=== PATIENT | female | born 1975 | race Caucasian/White ===

== ENCOUNTER 2025-02-05 16:42 | Emergency (ER) | payer BC, SELFPAY ==
--- OUTSIDE RECORDS SUMMARY | 2025-02-05 16:54 | XMS_ITS | Encounter Summary ---
Author Organization Group [facility] tem Address [id number] [address] [place] [address] Care Team Providers Care Pad Assembler Name Role Phone Jorge A Campos Primary Care Provider [phone] Encounter Details DateTypeDepartmentCare Team (Latest Contact Info)Mkjmrpbtkfd53/15/2025Travel Social History Tobacco UseTypesPacks/DayYears UsedDateSmoking Tobacco: NeverSmokeless Tobacco: NeverAlcohol UseStandard Drinks/WeekCommentsYes0 (1 standard drink = 0.6 oz pure alcohol)random glass of winePHQ-2AnswerDate RecordedTotal Qmzgx386 ChildcareAnswerDate KrdqapluAgmwegqrgCooafim11/12/2019EmploymentAnswerDate EmkwrdupIqrydfkqeiBvndxfh21/12/2019Hunger ScreeningAnswerDate RecordedWithin the past 12 months we worried whether our food would run out before we got money to buy more.Never True09/21/2024Within the past 12 months the food we bought just didn't last and we didn't have money to get more.Never True09/21/2024Purpose - LifeAnswerDate RecordedPurpose and direction in cbmlYsltgou15/11/2021 CommentsNoSex and Gender InformationValueDate RecordedSex Assigned at BirthNot on fileLegal PzyVpfrem27/06/2015 12:03 PM EDTGender IdentityNot on fileSexual OrientationNot on filedocumented as of this encounter Plan of Treatment DateTypeDepartmentCare Team (Latest Contact Info)Fasopvnucno51/07/2025 3:20 PM ESTAppointment [facility] [address] [place] [address] Junie Chaidez MD [address] [facility], [address] [place] [address] 02/27/2025 11:45 AM ESTOffice Visit [facility] [address] [facility] [place] [address] [place] [phone] Junie Chaidez MD [address] [facility], [address] [address] documented as of this encounter Visit Diagnoses Not on filedocumented in this encounter Additional Health Concerns AssessmentNoted TimePHQ-9 Depression Total Score: 2:00 PM EDT documented as of this encounter Care Teams Team MemberRelationshipSpecialtyStart DateEnd Date Jorge A Campos DO [address] [facility], [facility] [place] [address] PCP - GeneralFamily Medicine11/03/16documented as of this encounter
--- OUTSIDE RECORDS SUMMARY | 2025-02-05 16:54 | XMS_ITS | Encounter Summary ---
Author Organization [facility] tem Address [id number] [address] [place] [address] Care Team Providers Care Crown Blocker Name Role Phone Jorge A Campos DO Primary Care Provider [phone] Encounter Details DateTypeDepartmentCare Team (Latest Contact Info)Oozdlyvblfo92/20/2025Results Follow-Up [facility] - Family Medicine [address] [place] [address] Jorge A Campos DO [address], [place] [address] Mammography screening bilateral with CAD Social History Tobacco UseTypesPacks/DayYears UsedDateSmoking Tobacco: NeverSmokeless Tobacco: NeverAlcohol UseStandard Drinks/WeekCommentsYes0 (1 standard drink = 0.6 oz pure alcohol)random glass of winePHQ-2AnswerDate RecordedTotal Gcqyp743 ChildcareAnswerDate BgdksemgYgueaulngAtjvkgd30/12/2019EmploymentAnswerDate CvpfekeuFwofkyfgorQkohgqt47/12/2019Hunger ScreeningAnswerDate RecordedWithin the past 12 months we worried whether our food would run out before we got money to buy more.Never True09/21/2024Within the past 12 months the food we bought just didn't last and we didn't have money to get more.Never True09/21/2024Purpose - LifeAnswerDate RecordedPurpose and direction in dvlmYwqavgh56/11/2021 CommentsNoSex and Gender InformationValueDate RecordedSex Assigned at BirthNot on fileLegal EsxHlovmf29/06/2015 12:03 PM EDTGender IdentityNot on fileSexual OrientationNot on filedocumented as of this encounter Plan of Treatment DateTypeDepartmentCare Team (Latest Contact Info)Tzruleddlwh70/07/2025 3:20 PM ESTAppointment [facility] [address] [place] [address] Junie Chaidez MD [address] [phone] 02/27/2025 11:45 AM ESTOffice Visit [facility] Pul[facility]Sleep Medicine [address] [phone] Junie Chaidez MD [address] [address] documented as of this encounter Visit Diagnoses Not on filedocumented in this encounter Additional Health Concerns AssessmentNoted TimePHQ-9 Depression Total Score: 2:00 PM EDT documented as of this encounter Care Teams Team MemberRelationshipSpecialtyStart DateEnd Date Jorge A Campos DO [address], [facility] [[email or web address] [place] [address] PCP - GeneralFamily Medicine11/03/16documented as of this encounter
--- OUTSIDE RECORDS SUMMARY | 2025-02-05 16:54 | XMS_ITS | Clinical Summary ---
Author Organization [facility] Address [address] [place] [address] Care Team Providers Care Sericulture Teacher Name Role Phone Unavailable Primary Care Provider Unavailabl e Allergies Active AllergyReactionsCriticalityNoted DateCommentsCodeineItching,Nausea And Vomiting,Nausea YggaRyoi64/24/2017 Also causes pt. To vomit ZyqsqnuumhmOvsba49/24/2017 Patient stated mom always said don't take pennicillin IrszfparxjvzSfkmrhx75/24/2025 Medications MedicationSigDispense QuantityRefillsLast FilledStart DateEnd DateStatus albuterol 90 mcg/actuation inhaler Inhale 2 puffs every 6 (six) hours if needed for wheezing.Active albuterol 2.5 mg /3 mL (0.083 %) nebulizer solution Inhale 2.5 mg if needed in the morning, at noon, in the evening, and at bedtime. 06/10/2018Active Allergy Relief-D, cetirizine, 5-120 mg 12 hr tablet Take 1 tablet by mouth two times daily.Active codeine-guaiFENesin (Robitussin-AC) 10-100 mg/5 mL syrup Take 5 mL by mouth every 4 (four) hours if needed for cough.5Active esomeprazole (NexIUM) [address] capsule Take 40 mg by mouth in the morning.07/05/2018Active Trelegy Ellipta 200-62.5-25 mcg blister with device Inhale 1 puff in the morning.5Active montelukast (Singulair) 10 mg tablet Take 10 mg by mouth in the morning.10/05/2016Active predniSONE (Deltasone) 10 mg tablet Take 10 mg by mouth in the morning.Active Encounters DateTypeDepartmentCare TfanWitqbbyioks43/24/2025 10:00 AM EDTOffice Visit [facility] [address] [place] [address] Jesus Alberto Zapata MD 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)from Last 3 Months Social History Tobacco UseTypesPacks/DayYears UsedDateSmoking Tobacco: NeverSmokeless Tobacco: Never Tobacco Cessation:Counseling Given: Not Answered Alcohol UseStandard Drinks/WeekCommentsYes0 (1 standard drink = 0.6 oz pure alcohol)occCommentsUnknownSex and Gender InformationValueDate Recorded Sex Assigned at YehhyVzesok25/24/2025 9:53 AM EDTLegal YveDqqhod95/27/2025 1:26 PM EDTGender ZytwdapsHtfvxf95/24/2025 9:53 AM EDTSexual OrientationHeterosexual or Wuohplmb31/24/2025 9:53 AM EDT Last Filed Vital Signs Vital SignReadingTime TakenCommentsBlood Vtnrmotq506/80001/03/2025 10:04 AM EDT Vrcys529201/03/2025 10:04 AM MMXFrfpyvoafiz84.9 ??C (98.5 ??F)01/03/2025 10:04 AM EDTRespiratory Rate--Oxygen Npfbktevkc13%01/03/2025 10:04 AM EDTInhaled Oxygen Concentration--Bpfqvy35.9 kg (152 lb)01/03/2025 10:04 AM OBHNemdoh244.1 cm (5' 5 )01/03/2025 10:04 AM EDTBody Mass Index25.29001/03/2025 10:04 AM EDT Plan of Treatment Health MaintenanceDue DateLast DoneCommentsCT Inoetmrpatum1977Colonoscopy 1977Colorectal Cancer Dbdoaeoon1977FIT-DNA1977FIT1977 FOBT1977 7473Pccnjtpsnnfdt1977Depression Ejfdphzlu49/20/1989Hepatitis B Vaccines (1 of 3 - 19+ 3-dose series)01/30/1996Pneumococcal Vaccine: Pediatrics (0 to 5 Years) and At-Risk Patients (6 to 64 Years) (1 of 2 - PCV)01/30/1996Pap Smear1998Cervical Cancer Sxbuvvyap24/20/2007HPV/Tliqrz2301/29/2007Influenza Vaccine (#1)/05/2017, 02/10/20152784Sazorbxpz76Zoster Vaccines (1 of 2)2027dult Wxlctpm34/03/2025, 09/11/2011HIB VaccinesAged OutNo longer eligible based on patient's age to complete this topic HPV VaccinesAged OutNo longer eligible based on patient's age to complete this topicIPV VaccinesAged OutNo longer eligible based on patient's age to complete this topicMeningococcal B VaccineAged OutNo longer eligible based on patient's age to complete this topicMeningococcal VaccineAged OutNo longer eligible based on patient's age to complete this topicRotavirus VaccinesAged OutNo longer eligible based on patient's age to complete this topic Insurance
--- OUTSIDE RECORDS SUMMARY | 2025-02-05 16:54 | XMS_ITS | Clinical Summary ---
Author Organization [employer] tem Address [id number] [address] [place] [address] Care Team Providers Care Vp Software Name Role Phone MaudeJorge A patterson Primary Care Provider Allergies Active AllergyReactionsCriticalityNoted FbwrFghmifojNaqzuwjAyeydh04/24/2017 PenicillinsOther (See Comments)11/02/2016 Patient stated mom always said don't take pennicillin TheophyllineItching Medications MedicationSigDispense QuantityRefillsLast FilledStart DateEnd DateStatus SUMAtriptan (IMITREX) 50 mg tablet Take 1 tablet (50 mg total) by mouth as needed for migraine. 9 tablet 2Active MUCUS RELIEF ER 600 mg tablet extended release 12hr TAKE 1 TABLET BY MOUTH EVERY 12 HOURS. 40 tablet 5Active albuterol (PROVENTIL,VENTOLIN) 2.5 mg /3 mL (0.083 %) nebulizer solution Indications:Hypereosinophilic syndrome, unspecified type,Organizing pneumonia (CMS-HCC)Inhale 3 mL (2.5 mg total) by nebulization 4 (four) times a day as needed for wheezing. 150 mL 5Active Additional Information Patient not taking.Reported on 01/19/2025 albuterol (PROVENTIL HFA;VENTOLIN HFA) 90 mcg/actuation inhaler Indications:Hypereosinophilic syndrome, unspecified type,Organizing pneumonia (CMS-HCC)Inhale 2 puffs every 6 (six) hours as needed for wheezing. 18 g 1105Active omeprazole (PriLOSEC) 40 mg capsule Take 1 capsule (40 mg total) by mouth in the morning. 90 capsule 5Active nemnzlrqybr-tzkxkzqhy-ktaffsue (TRELEGY ELLIPTA) 200-62.5-25 mcg blister with device Inhale 1 puff in the morning. 90 each 5Active montelukast (SINGULAIR) 10 mg tablet Take 1 tablet (10 mg total) by mouth nightly. 30 tablet 1105Active predniSONE (DELTASONE) 10 mg tablet TAKE 4 TABS FOR 14 DAYS, 3.5 TABS FOR 7 DAYS, 3 TABS FOR 7 DAYS, 2.5 TABS FOR 7 DAYS, 2 TABS FOR 7 DAYS, 1.5 TABS FOR 7 DAYS, 1 TAB FOR 7 DAYS, THEN 0.5 TABS FOR 7 DAYS, TAKE WITH BREAKFAST 102 tablet 5Active predniSONE (DELTASONE) 10 mg tablet Take 4 tablets (40 mg total) by mouth daily with breakfast for 14 days, THEN 3.5 tablets (35 mg total) daily with breakfast for 7 days, THEN 3 tablets (30 mg total) daily with breakfast for 7 days, THEN 2.5 tablets (25 mg total) daily with breakfast for 7 days, THEN 2 tablets (20 mg total) daily with breakfast for 7 days, THEN 1.5 tablets (15 mg total) daily with breakfast for 7 days, THEN 1 tablet (10 mg total) daily with breakfast for 7 days, THEN 0.5 tablets (5 mg total) daily with breakfastfor 7 days. 154 tablet 5001/08/2025Discontinued Active Problems ProblemNoted DateDiagnosed DateAbnormal finding on lung ujxzdzu3805/13/2023 Wokioxvbpqkongrnrs01/30/202305/30/2023Migraine without aura12/05/2018 Gastroesophageal reflux disease without pwzayewvcje55/26/6765Ycmvmk18/20/2018 Zchjljcxmohodn98/20/2017Pituitary adenoma (CMS-HCC) (Not present on last MRI) 10/27/2016Pulmonary embolismWPW syndrome Resolved Problems ProblemNoted DateDiagnosed DateResolved DateChronic bokgexyyoudy81/02/2019 4Displaced fracture of distal phalanx of lesser toe Encounters DateTypeDepartmentCare CpxwPybealpnqkb45/15/9739Xsfyuo69/10/2025 10:30 AM EDT Office Visit [facility] [address] [facility] [address] [place] [phone] Junie Chaidez MD Boumegouas, Manel, MD Abnormal echocardiogram; WPW (Ehhdg-Pwmxrehoa-Qzijx syndrome)01/19/20257339Wmtbcu16/27/2025Refill [facility] [address] [place] [phone] Junie Chaidez MD 12/25/2024 11:30 AM EDTOffice Visit [facility] [address] [place] [phone] Junie Chaidez MD Abnormal echocardiogram (Primary Dx); WPW (Vitzc-Egzcvjmyc-Ibsoy syndrome); Hypereosinophilic syndrome, unspecified type; Chronic eosinophilic pneumonia ([facility])12/25/20242720Ixkcva02/14/2025Travel 12/12/2024 8:00 AM EDT - 12/12/2024 11:59 PM EDTHospital Encounter [facility] - Pulmonary Function [address] [place] [phone] Celi Mercedes MD Asthma, unspecified asthma severity, unspecified whether complicated, unspecified whether persistent; SOB (shortness of breath) Discharge Disposition: Home12/12/20246527Kjaioq61/31/2025Refill [facility] [address] [place] [phone] Junie Chaidez MD 12/10/2024Refill [facility] - Family Medicine [address] [place] [phone] Jorge A Campos DO 12/05/2024Documentation [facility] [address] [place] [phone] Faiza Bagley, RN 12/05/2024Orders Only [facility] [address] [phone] Junie Chaidez MD Mediastinal adenopathy (Primary Dx)12/04/2024 1:56 PM EDT - 12/04/2024 11:59 PM EDTHospital Encounter [facility] - Cardiovascular [address] [place] [phone] Junie Chaidez MD Moderate persistent asthma with exacerbation; Hypereosinophilic syndrome, unspecified type; Organizing pneumonia ([facility]) Discharge Disposition: Home12/04/2024 12:52 PM EDT - 12/04/2024 1:55 PM EDT Hospital Encounter [facility] - Radiology [address] [place] [phone] Chronic eosinophilic pneumonia ([facility]) Discharge Disposition: Home12/04/20245455Rlubxs91/20/2025Results Follow-Up [facility] - Family Medicine [address] [place] [phone] Jorge A Campos, DO Mammography screening bilateral with CAD11/24/2024 7:57 AM EDT - 11/24/2024 11:59 PM EDTHospital Encounter [facility] - Mammography/DEXA Imaging [address] [place] [phone] Encounter for screening mammogram for malignant neoplasm of breast Discharge Disposition: Home11/23/20248712Tlgwqy52/06/2025Telephone [facility] [address] [place] [phone] Junie Chaidez MD 11/13/2024Telephone [facility] [address] [place] [phone] Junie Chaidez MD 11/12/2024Refill [facility] - Family Medicine [address] [place] [phone] Jorge A Campos, Severe persistent asthma, unspecified whether complicated ([facility])11/07/2024 9:55 AM EDTAnesthesia Event [facility] [address] [place] [address] Guru Bills MD 11/07/2024 9:00 AM EDT - 11/07/2024 10:30 AM EDTSurgery [facility] [address] [place] [phone] Junie Chaidez MD BRONCHOSCOPY ALVEOLAR LAVAGE [[id number] (CPT??)]11/07/2024 7:08 AM EDT - 11/07/2024 12:49 PM EDTHospital Encounter [facility] [address] [facility] [place] [phone] Junie Chaidez MD Abnormal finding on lung imaging (Primary Dx) Discharge Disposition: Home11/07/2024Travelfrom Last 3 Months Immunizations ImmunizationAdministration DatesNext DueInfluenza Split Preservative Free ID 01/11/2018Influenza, Jczyepffrxl92/02/2018,02/10/2015Tdap09/21/2024,09/11/2011 Family History Medical HistoryRelationNameCommentsProstate cancerFatherLarrySkin cancerFather LarryMiscarriages / StillbirthsMotherCathy BalesAlcohol abusePaternal GrandfatherEarl Balesearly deathBreast cancerPaternal GrandmotherJuanita Karbler 60sDiabetesPaternal GrandmotherJuanita KarblerNo Known ProblemsSister 1Learning disabilitiesSister 2Leslie MillisBil Breast CancerNeg HxRelationNameStatus CommentsFatherLarryAliveMotherCathy BalesAlivePaternal GrandfatherEarl Marysol AlivePaternal GrandmotherJuanita KarblerAliveSister 1AliveSister 2Leslie Millis Alive Social History Tobacco UseTypesPacks/DayYears UsedDateSmoking Tobacco: NeverSmokeless Tobacco: NeverAlcohol UseStandard Drinks/WeekCommentsYes0 (1 standard drink = 0.6 oz pure alcohol)random glass of winePHQ-2AnswerDate RecordedTotal Ndjou051 ChildcareAnswerDate SvcqwuhxGcqkeagxqZarzber02/12/2019EmploymentAnswerDate HklimubfLvcprqlgvkTxsvolw99/12/2019Hunger ScreeningAnswerDate RecordedWithin the past 12 months we worried whether our food would run out before we got money to buy more.Never True09/21/2024Within the past 12 months the food we bought just didn't last and we didn't have money to get more.Never True09/21/2024Purpose - LifeAnswerDate RecordedPurpose and direction in beioHsucbgg58/11/2021 CommentsNoSex and Gender InformationValueDate RecordedSex Assigned at BirthNot on fileLegal FiwUhgjcb79/06/2015 12:03 PM EDTGender IdentityNot on fileSexual OrientationNot on file Last Filed Vital Signs Vital SignReadingTime TakenCommentsBlood Yztqrfhb874/9001/19/2025 10:15 AM EDT Hlvqn900201/19/2025 10:15 AM RWLJxloxbauyvc61.5 ??C (97.7 ??F)12/25/2024 11:23 AM EDTRespiratory Huxu026911/07/2024 12:30 PM EDTOxygen Ctyxwqszch799%01/19/2025 10:15 AM EDTInhaled Oxygen Concentration--Nmoetd08.5 kg (157 lb 9.6 oz) 01/19/2025 10:15 AM FCOYvofeh582.1 cm (5' 5 )01/19/2025 10:15 AM EDTBody Mass Index26.231 10:15 AM EDT Plan of Treatment DateTypeDepartmentCare Team (Latest Contact Info)Dlnzdqxkvel64/07/2025 3:20 PM ESTAppointment [facility] [address] [place] [address] Junie Chaidez MD [address] [facility], [address] [place] [phone] (Wpmm) 02/27/2025 11:45 AM ESTOffice Visit [facility] [address] [phone] Junie Chaidez MD [address] [facility], [facility] [address] [place] [address] Health MaintenanceDue DateLast DoneCommentsAdult BMI Follow Up Plan1995Pap Smear/, 12/05/2018, 12/05/2018Influenza Bipcanh9712/11/2024 01/11/2018, 01/11/2018, 02/10/2015Depression Pbsvtxyen12 Otqavtsvn39, 11/24/2024, 08/09/2023, Additional history exists Adult BMI Xrgypzdvi21Tobacco Hegpyfmwp56 DTaP,Tdap and Td Vaccines (3 - Td or Tdap), 09/11/2011 Medical Devices Not on file Procedures Procedure NamePriorityDate/TimeAssociated DiagnosisCommentsPOCT EKGRoutine 01/19/2025 10:25 AM EDT Abnormal echocardiogram WPW (Ffsun-Fincyfgzh-Dimko syndrome) SPIROMETRY PRE/POST BRONCHODILATOR AND DLCO AND YEFDIMOTQRJRMPPEwvhuli47/02/2025 9:02 AM EDT Asthma, unspecified asthma severity, unspecified whether complicated, unspecified whether persistent ECHO COMPLETE WO ZBMXVJBAYztyokq74/25/2025 2:36 PM EDT Moderate persistent asthma with exacerbation Hypereosinophilic syndrome, unspecified type Organizing pneumonia (CMS-HCC) XR CHEST 2 PIWNopbkas09/25/2025 12:59 PM EDT Chronic eosinophilic pneumonia (CMS-HCC) MAMM SCREENING BILATERAL W KSQEnrtzjs66/15/2025 8:19 AM EDT Encounter for screening mammogram for malignant neoplasm of breast AFB CULTURE DIRECT INCLUDES AFB SRODWRgbqfbs08/29/2025 11:54 AM EDT FUNGAL CULTURE INCLUDES FUNGAL CMCMWPwvcocw86/29/2025 11:54 AM EDT ANAEROBIC GASMCDYRxufxhm06/29/2025 11:54 AM EDT TISSUE UFGVBRJQesvxcx44/29/2025 11:54 AM EDT FLOW CYTOMETRY, DYJQJZCtzhzvf87/29/2025 10:59 AM EDT REFLEXED BODY FLUID CELL COUNT NNRQCTMQOYSDIescwbb55/29/2025 10:13 AM EDT BODY FLUID CELL CBLLXSjsdyaz76/29/2025 10:13 AM EDT AFB CULTURE CONCENTRATED INCLUDES AFB TVPQAJiiinyc93/29/2025 10:13 AM EDT LOWER RESP CULTURE SPUTUM CULTURE INC GRAM LGCGFMdukcsr54/29/2025 10:13 AM EDT FUNGAL CULTURE INCLUDES FUNGAL RGFPRIdrlkho81/29/2025 10:13 AM EDT NON-GYNECOLOGIC VUZEUGVQOmyyrmh27/29/2025 10:11 AM EDT REFLEXED BODY FLUID CELL COUNT DGXBQLNJVJSBYtvmtfh68/29/2025 10:11 AM EDT BODY FLUID CELL QVZVTXcknmbs02/29/2025 10:11 AM EDT AFB CULTURE CONCENTRATED INCLUDES AFB XWWMEHhfbowb53/29/2025 10:11 AM EDT LOWER RESP CULTURE SPUTUM CULTURE INC GRAM EAXQDVrbzxbu2025 10:11 AM EDT FUNGAL CULTURE INCLUDES FUNGAL JHMCYOfdlieu41/29/2025 10:11 AM EDT ME AN ELECTIVE ENDOTRACHEAL RBOBBUJmofcyx22/29/2025 10:04 AM EDT ENDOBRONCHIAL ULTRASOUND ZPPUWOSXIPVH70/29/2025 9:56 AM EDT EGPA, hypereosinophilic syndromes, eosinophilic pneumonia, pulm nodule. ME BRNCHSC W/BRNCL ALVEOLAR GOKOJS6811/07/2024 9:56 AM EDT EGPA, hypereosinophilic syndromes, eosinophilic pneumonia, pulm nodule. LWGLRPMICBRO84/29/2025 9:48 AM EDT POCT , URINE (NUCG)Zmytyxo2411/07/2024 8:33 AM EDT PROVATION ASHGUJPBWQUTLjqfyhx79/29/2025 8:16 AM EDT HIGH RISK HPV W/NVBBNubapof18/26/2019 6:53 PM EDT from Last 3 Months or Most Recently Relevant to Health Maintenance Results * POCT EKG (01/19/2025 10:25 AM EDT) Narrative Authorizing ProviderResult TypeResult StatusMando Zhu MDECG ORDERABLES Final ResultPerforming OrganizationAddressCity/State/ZIP CodePhone Number MANUALLY TRANSCRIBED RESULTS * SPIROMETRY PRE/POST BRONCHODILATOR AND DLCO AND PLETHYSMOGRAPHY (12/12/2024 9:02 AM EDT) Narrative MANUALLY TRANSCRIBED RESULTS - 12/24/2024 10:40 AM EDT Date of Testin12/12/2024 Quality of Data: The patient's efforts are acceptable and reproducible. Test Performed: Pulmonary Function Test Spirometry Findings: Spirometry shows normal FEV1 at 91% of predicted with no significant change after bronchodilators. ??Normal forced vital capacity at 92% of predicted with no significant change after bronchodilators. ??Normal FEV1/FVC ratio at 0.79 with no significant change after bronchodilators. ?? Flow volume loops are normal. ??The response to bronchodilators is negative. Lung Volumes: Residual volume is normal at 108% of predicted. ??Total lung capacity is normal at 104% of predicted. Diffusion Capacity: Uncorrected DLCO is normal at 87% of predicted. Conclusions: Normal pulmonary function test. ??Negative response to bronchodilators. ?? Clinical correlation advised Celi Mercedes MD Authorizing ProviderResult TypeResult StatusMohammaayanna Mercedes [facility]ITALFT ORDERABLESFinal ResultPerforming OrganizationAddressCity/State/ZIP CodePhone Number MANUALLY TRANSCRIBED RESULTS * Echo complete W/O contrast (12/04/2024 2:36 PM EDT)ComponentValueRef RangeTest MethodAnalysis TimePerformed AtPathologist SignatureLVOT stroke vghugq36.28ml XCELERALV Systolic Nceblr30.71gZAKYLUTPRE36%EQXLLMRHT6517 - 44 %XCELERALV Diastolic Toeqjg34.45oDGCFRLHIVKXDc7.68tlCFRDABZLPPCl0.28yeDIYVKNRTSQ4.640.6 - 1.1 cmXCELERAPW0.680.6 - 1.1 cmXCELERALVOT diameter2.82gjSHDGIQVSIR24.40cm/s XCELERAMV TDI E' (medial)9.53cm/sXCELERALA Volume Index24.3mL/x0WBIPBEBN/A ratio1.59XCELERAE wave deceleration bmug419.00msecXCELERAMV Peak E Vel93.10 cm/sXCELERAMV Peak A Vel58.70cm/sXCELERALA size3.40cmXCELERAAortic root3.30cm XCELERALA eylews62.68vl4BDBASZPCM diastolic dimension (basal)39.3mmXCELERA TAPSE2.75cmXCELERAAV peak ziw122.00cm/sXCELERALVOT peak vel1.15m/sXCELERAAV VTI26.90cmXCELERALVOT peak VTI24.60cmXCELERAAV mean gradient4.00mmHgXCELERAAV peak gradient5.95mmHgXCELERAAV valve area2.87XCELERAValve area - Index1.7 XCELERAMV pressure 1/2 time75.00msXCELERAMV valve area p 1/2 method2.93cm2 XCELERATR Peak Vel2.5m/sXCELERATR peak uqmlbwkr96.00mmHgXCELERALV ESV A2C39.10 mLXCELERALV ESV A4C43.10mLXCELERALV RWT 2D25.40XCELERAEcho EF Ertluiusv55% XCELERAAV Velocity Ratio0.91XCELERALeft Ventricle Xvez394.312475713959428p XCELERAInterventricular Septum Diastolic Thickness by 2D6.32ewSLBGYWTQCDB56.5 cm/sXCELERAEst. RA wksfzdps9glJbNSYEMBGIB area18.3so3BODPVLFEF max vel2.50m/s XCELERAMV E' ruwrbcm95.0cm/sXCELERARV Peak Systolic Nbikpcdv50whMpQIVAXFR Anatomical RegionLateralityModalityChestN/AUltrasoundSpecimen (Source) Anatomical Location / LateralityCollection Method / VolumeCollection Time Received Time Narrative 12/04/2024 5:23 PM EDT Left Ventricle: Left ventricle is mildly dilated. Systolic function is normal with an ejection fraction of 65-70%. There is no diastolic dysfunction and normal left atrial pressure. Lateral E' is 13.40 cm/s. Medial E' is 9.53 cm/s. Average E' is 12.0 cm/s. Left Ventricle Left ventricle is mildly dilated. Wall thickness is normal. Systolic function is normal with an ejection fraction of 65-70%. No obvious regional wall motion abnormalities. There is no diastolic dysfunction and normal left atrial pressure. Lateral E' is 13.40 cm/s. Medial E' is 9.53 cm/s. Average E'is 12.0 cm/s. Right Ventricle Right ventricular size appears normal. The right ventricular basal diameter is 39.3 mm. Systolic function is normal. Left Atrium Left atrium volume index is normal. The left atrial volume index is 24.3 mL/m2. Right Atrium Right atrium is normal in size. The right atrial area is 18.0 cm2. IVC/SVC The right atrial pressure is estimated at 8 mmHg. IVC appears dilated with increased right atrial pressure. There is normal collapse with deep inspiration. Mitral Valve Mitral valve structure is normal. There is ourzk-ra-hnmx regurgitation. There is no evidence of mitral valve stenosis. Tricuspid Valve Tricuspid valve appears to be normal. There is mild regurgitation. RVSP calculated at 33 mmHg. RVSPis based on RA pressure of 8 mmHg. Aortic Valve The aortic valve is trileaflet. There is no regurgitation or stenosis. Pulmonic Valve The pulmonic valve was not well visualized. There is trace regurgitation. Ascending Aorta The aortic root is normal in size. Pericardium There is no pericardial effusion. Study Details A complete echo was performed using complete 2D, color flow Doppler and spectral Doppler. Overall the study quality was adequate. Wall Scoring Baseline Score Index: 1.00 The left ventricular wall motion is normal. Authorizing ProviderResult TypeResult StatusJunie Chaidez MDCV ECHO ORDERABLESFinal Result * X-ray chest 2 views (12/04/2024 12:59 PM EDT)Anatomical RegionLaterality ModalityBody, ChestN/AComputed RadiographySpecimen (Source)Anatomical Location / LateralityCollection Method / VolumeCollection TimeReceived Time12/05/2024 7:23 AM EDT Narrative 12/05/2024 7:25 AM EDT History: Hyperlipidemia. History of pulmonary embolism. Procedure: 2 view PA and Lateral chest radiograph. Comparison: 01/21/2021 Findings: The heart and lungs show no acute findings, and the mediastinum and fidencio are grossly negative . No pneumothorax. Impression: No acute pulmonary process. Finalized by Renan Bee MD on 12/05/2024 7:25 AM Procedure Note Renan Bee MD - 12/05/2024 History: Hyperlipidemia. History of pulmonary embolism. Procedure: 2 view PA and Lateral chest radiograph. Comparison: 01/21/2021 Findings: The heart and lungs show no acute findings, and the mediastinumand fidencio are grossly negative . No pneumothorax. Impression: No acute pulmonary process. Finalized by Renan Bee MD on 12/05/2024 7:25 AM Authorizing ProviderResult TypeResult StatusJunie Chaidez MDIMG DIAGNOSTIC IMAGING ORDERABLESFinal Result * Mammography screening bilateral with CAD (11/24/2024 8:19 AM EDT)Anatomical RegionLateralityModalityBreastBilateralMammographySpecimen (Source)Anatomical Location / LateralityCollection Method / VolumeCollection TimeReceived Time 11/28/2024 10:26 AM EDT Narrative 11/28/2024 10:31 AM EDT FERNANDA BEEBETHONY 1975 [id number] EXAM: MAMM SCREENING BILATERAL W CAD, 11/24/2024 7:57 AM CLINICAL INDICATIONS: Screening, Encounter for screening mammogram for malignant neoplasm of breast COMPARISON: Multiple prior mammograms were viewed for comparison dating back to 12/29/2019 TECHNIQUE: Bilateral digital tomosynthesis MLO and CC views of the breasts were obtained, with creation of synthetic 2D views. Computer aided detection was utilized. FINDINGS: The breasts are extremely dense, which lowers the sensitivity of mammography. There are no suspicious masses, calcifications, or areas of architectural distortion. IMPRESSION: No mammographic evidence of malignancy. BI-RADS: BI-RADS 1 - Negative RECOMMENDATION: ??Routine screening mammogram in 1 year. Given personal elevated risk of malignancy(see below), MRI may be considered for supplemental screening. This is recommended to be performed at alternating 6 month intervals with screening mammography. ?? RISK ASSESSMENT: TC Lifetime risk: 28.93%. The patient's reported personal and family medical history was used calculate their Tyrer-Cuzick lifetime risk of malignancy. Scores 20% or greater are considered high risk, and patient should consider supplemental screening with MRI per ACR guidelines. Patient may discuss this option with their healthcare provider. Finalized by Octavio Cornejo MD on 11/28/2024 10:31 AM 1 d MAMM 1 YR FDA Accredited Performing Facility: [facility] - Mammography/DEXA Imaging [address] [facility] [address] Procedure Note Octavio Cornejo MD - 11/28/2024 FERNANDA BETHEA ALEJANDRO 1975 [id number] EXAM: MAMM SCREENING BILATERAL W CAD, 11/24/2024 7:57 AM CLINICAL INDICATIONS: Screening, Encounter for screening mammogram formalignant neoplasm of breast COMPARISON: Multiple prior mammograms were viewed for comparison datingback to 12/29/2019 TECHNIQUE: Bilateral digital tomosynthesis MLO and CC views of the breastswere obtained, with creation of synthetic 2D views. Computer aideddetection was utilized. FINDINGS: The breasts are extremely dense, which lowers the sensitivity ofmammography. There are no suspicious masses, calcifications, or areas of architectural distortion. IMPRESSION: No mammographic evidence of malignancy. BI-RADS: BI-RADS 1 - Negative RECOMMENDATION: Routine screening mammogram in 1 year. Given personalelevated risk of malignancy (see below), MRI may be considered forsupplemental screening. This is recommended to be performed at alternating6 month intervals with screening mammography. RISK ASSESSMENT: TC Lifetime risk: 28.93%. The patient's reported personal and family medical history was usedcalculate their Tyrer-Cuzick lifetime risk of malignancy. Scores 20% orgreater are considered high risk, and patient should consider supplementalscreening with MRI per ACR guidelines. Patient may discuss this optionwith their healthcare provider. Finalized by Octavio Cornejo MD on 11/28/2024 10:31 AM 1 d MAMM 1 YR FDA Accredited Performing Facility: [facility] - Mammography/DEXA Imaging [address] [facility] [address] Authorizing ProviderResult TypeResult StatusDennis G Furlong DOIMG MAMMOGRAPHY ORDERABLESFinal Result * AFB culture direct includes AFB smear (11/07/2024 11:54 AM EDT)ComponentValue Ref RangeTest MethodAnalysis TimePerformed AtPathologist SignatureCULTURE RESULTSNO ACID FAST BACILLI ISOLATED IN 8 WEEKS01/09/2025 8:31 AM [facility]ATORYAFB SMEARNo Acid Fast Bacilli (Direct Smear) 01/09/2025 8:31 AM [facility] LABORATORYSpecimen (Source) Anatomical Location / LateralityCollection Method / VolumeCollection Time Received TimeFine Needle AspirateLung structure / Tknugmk9111/07/2024 11:54 AM EDT11/07/2024 11:54 AM EDT Narrative Authorizing ProviderResult TypeResult StatusNicyadiel Chaidez MDMICROBIOLOGY - GENERAL ORDERABLESFinal ResultPerforming OrganizationAddressCity/State/ZIP Code Phone Number [facility] [address] [place] [address], * Tissue culture includes gram stain (11/07/2024 11:54 AM EDT)ComponentValueRef RangeTest MethodAnalysis TimePerformed AtPathologist SignatureCULTURE RESULTS NO GROWTH 3 DAYS11/11/2024 6:17 AM [facility] LABORATORYGRAM STAIN1 to 9 White Blood Cells/[facility]11/11/2024 6:17 AM [facility]ORYGRAM STAIN 0 Squamous Epithelial Cells/[facility]11/11/2024 6:17 AM [facility]ORYGRAM STAINNo organisms seen11/11/2024 6:17 AM [facility]ORATORYSpecimen (Source)Anatomical Location / LateralityCollection Method / VolumeCollection TimeReceived Time Fine Needle AspirateLung structure / Wpyqfdv1511/07/2024 11:54 AM EDT11/07/2024 11:54 AM EDT Narrative Authorizing ProviderResult TypeResult StatusJunie Radha Chaidez [facility]LEYROBIOLOGY - GENERAL ORDERABLESFinal ResultPerforming OrganizationAddressCity/State/ZIP Code Phone Number [facility] [address] [place] [address], * Fungal culture includes fungal smear (11/07/2024 11:54 AM EDT) Only the most recent of3 resultswithin the time period is included. ComponentValueRef RangeTest MethodAnalysis TimePerformed AtPathologist Signature CULTURE RESULTSNO FUNGUS ISOLATED AFTER 4 WEEKS12/04/2024 8:12 AM [facility]ORATORYFUNGAL SMEARNo fungal elements seen12/04/2024 8:12 AM [facility]ORATORYFUNGAL SMEAROn Direct Smear12/04/2024 8:12 AM [facility]ORATORYSpecimen (Source)Anatomical Location / LateralityCollection Method / VolumeCollection TimeReceived TimeFine Needle AspirateLung structure / Agwonmv1711/07/2024 11:54 AM EDT11/07/2024 11:54 AM EDT Narrative Authorizing ProviderResult TypeResult StatusJunie Radha Chaidez [facility]ROBIOLOGY - GENERAL ORDERABLESFinal ResultPerforming OrganizationAddressCity/State/ZIP Code Phone Number [facility] [address] [place] [address], * (ABNORMAL) Anaerobic culture (11/07/2024 11:54 AM EDT)ComponentValueRef Range Test MethodAnalysis TimePerformed AtPathologist SignatureCULTURE RESULTSRare Cutibacterium (formerly propionibacterium) acnes(A)11/15/2024 10:04 AM EDT [facility] LABORATORYSpecimen (Source)Anatomical Location / LateralityCollection Method / VolumeCollection TimeReceived TimeFine Needle AspirateLung structure / Xshypsz7411/07/2024 11:54 AM EDT11/07/2024 11:54 AM EDT Narrative Authorizing ProviderResult TypeResult StatusJunie Chaidez MDMICROBIOLOGY - GENERAL ORDERABLESFinal ResultPerforming OrganizationAddressty/[facility]/ZIP Code Phone Number [facility] [address] [place] [address], * Flow Cytometry, Varies (11/07/2024 10:59 AM EDT)ComponentValueRef RangeTest MethodAnalysis TimePerformed AtPathologist SignatureCase ReportFlow Cytometry Report ? Case: [id number] ? Authorizing Provider: ??Junie Chaidez MD ? Collected: ? 11/07/2024 1059 ? Ordering Location: ? [facility] ??Received: ?11/07/2024 1148 ? - Endoscopy ? Pathologist: ? Piyush Murphy MD ? Specimen: ?Lung, LUNG STATION 4R FNA FOR FLOW ? 11/09/2024 6:20 PM [facility]ORATORYFlow InterpretationNo flow cytometric abnormalities. Immunophenotypic analysis of the lymphoid cells demonstrates a mixed population of phenotypically unremarkable T-cells and polyclonal B-cells. No monoclonal lymphoid population is detected. 11/09/2024 6:20 PM [facility] at 1820 EDTFlow Interpretation Comment Immunophenotyping antibodies tested: CD3, CD5, CD7, CD10, CD19, CD20, CD23, CD45, Reliance, and Lambda. Immunophenotyping Comment: Immunophenotyping has been used in this diagnostic evaluation. This test was developed and its performance characteristics determined by the [facility]. It has not been cleared or approved by the U.S. Food and Drug Administration. The FDA has determined that such clearance or approval is not necessary. This test is used for clinical purposes. It should not be regarded as investigational or for research. This laboratory is certified under the Clinical Laboratory Improvement Amendments of 1988 ( CLIA ) as qualified to perform high-complexity clinical testing. Interpretation performed at [facility], [address] [place] [id number], License number: [id number]. 11/09/2024 6:20 PM [facility] LABORATORYEmbedded Images 11/09/2024 6:20 PM [facility]ORATORYSpecimen (Source) Anatomical Location / LateralityCollection Method / VolumeCollection Time Received TimeFine Needle AspirateLung structure / Zzfexdb3511/07/2024 10:59 AM EDT 11/07/2024 11:48 AM EDTComment:Pre-op diagnosis: EGPA, hypereosinophilic syndromes, eosinophilic pneumonia, pulm nodule. Narrative Authorizing ProviderResult TypeResult StatusJunie Chaidez MD PATHOLOGY/CYTOLOGY ORDERABLESFinal ResultPerforming OrganizationAddress City/State/ZIP CodePhone Number [facility] [address] [place] [address], * AFB culture concentrated includes AFB smear (11/07/2024 10:13 AM EDT) Only the most recent of2 resultswithin the time period is included. ComponentValueRef RangeTest MethodAnalysis TimePerformed AtPathologist Signature CULTURE RESULTSNO ACID FAST BACILLI ISOLATED IN 8 WEEKS01/09/2025 8:31 AM EDT [facility] LABORATORYAFB SMEARNo Acid Fast Bacili (Concentrated Smear)01/09/2025 8:31 AM [facility]YSpecimen (Source) Anatomical Location / LateralityCollection Method / VolumeCollection Time Received TimeBronchoalveolar Lavage (Lung, Left)11/07/2024 10:13 AM EDT 11/07/2024 4:05 PM EDTComment:Pre-op diagnosis: EGPA, hypereosinophilic syndromes, eosinophilic pneumonia, pulm nodule. Narrative Authorizing ProviderResult TypeResult StatusJunie Chaidez MDMICROBIOLOGY - GENERAL ORDERABLESFinal ResultPerforming OrganizationAddressty/State/ZIP Code Phone Number [facility] [address] [place] [address], * Lower resp/sputum culture inc gram stain: (11/07/2024 10:13 AM EDT) Only the most recent of2 resultswithin the time period is included. ComponentValueRef RangeTest MethodAnalysis TimePerformed AtPathologist Signature CULTURE RESULTSNO GROWTH 2 DAYS11/09/2024 7:42 AM [facility] LABORATORYGRAM STAIN0 to 1 White Blood Cells/LPF11/09/2024 7:42 AM [facility]ORATORYGRAM STAIN 0 Squamous Epithelial Cells/LPF 11/09/2024 7:42 AM [facility]ORATORYGRAM STAIN0 to 1 Ciliated Epithelial Cells/LPF11/09/2024 7:42 AM [facility] LABORATORYGRAM STAINNo organisms seen11/09/2024 7:42 AM [facility]ORATORYSpecimen (Source)Anatomical Location / LateralityCollection Method / VolumeCollection TimeReceived TimeBronchoalveolar Lavage (Lung, Left) 11/07/2024 10:13 AM EDT11/07/2024 4:05 PM EDTComment:Pre-op diagnosis: EGPA, hypereosinophilic syndromes, eosinophilic pneumonia, pulm nodule. Narrative Authorizing ProviderResult TypeResult StatusJunie Chaidez MDMICROBIOLOGY - GENERAL ORDERABLESFinal ResultPerforming OrganizationAddressCity/State/ZIP Code Phone Number [facility] [address] [place] [address], * Body Fluid Cell Count (11/07/2024 10:13 AM EDT) Only the most recent of2 resultswithin the time period is included. ComponentValueRef RangeTest MethodAnalysis TimePerformed AtPathologist Signature Fluid gmbclNsarginou25/30/2025 6:22 AM [facility] Fluid zeilkptBcjhp07/30/2025 6:22 AM [facility] LABORATORYFluid RBC Count84/uL11/08/2024 6:22 AM [facility] LABORATORYNucleated Cell Ksvzc093/uL11/08/2024 6:22 AM [facility] Specimen (Source)Anatomical Location / LateralityCollection Method / Volume Collection TimeReceived TimeBronchoalveolar Lavage (Other)11/07/2024 10:13 AM EDT11/07/2024 4:06 PM EDTComment:Pre-op diagnosis: EGPA, hypereosinophilic syndromes, eosinophilic pneumonia, pulm nodule. Narrative [facility] - 11/08/2024 6:22 AM EDT Reference values for this fluid type are undefined, as fluid accumulation is considered abnormal. Assorted lining cells present. Authorizing ProviderResult TypeResult StatusJunie Chaidez MDBODY FLUIDS AND STOOLS ORDERABLESEdited Result - FinalPerforming OrganizationAddress City/State/ZIP CodePhone Number [facility] [address] [place] [address], * Reflexed Body Fluid Cell Count Differential (11/07/2024 10:13 AM EDT) Only the most recent of2 resultswithin the time period is included. ComponentValueRef RangeTest MethodAnalysis TimePerformed AtPathologist Signature Neutrophils, Fluid12%11/07/2024 6:30 PM [facility] Lymphocyte, Fluid5%11/07/2024 6:30 PM [facility] [place]/Macro, Fluid43%11/07/2024 6:30 PM [facility] Eosinophil, Fluid40%11/07/2024 6:30 PM [facility] Total Cells Ybbflvn494%11/07/2024 6:30 PM [facility] Specimen (Source)Anatomical Location / LateralityCollection Method / Volume Collection TimeReceived TimeBronchoalveolar Lavage (Other)11/07/2024 10:13 AM EDT11/07/2024 4:06 PM EDT Narrative Authorizing ProviderResult TypeResult StatusJunie Chaidez MDBODY FLUIDS AND STOOLS ORDERABLESFinal ResultPerforming OrganizationAddressK[facility]/State/ZIP Code Phone Number [facility] [address] [place] [address], * Cytology non-gynecologic (11/07/2024 10:11 AM EDT)ComponentValueRef RangeTest MethodAnalysis TimePerformed AtPathologist SignatureCase ReportMedical Cytology Report ? Case: [id number] ? Authorizing Provider: ??Junie Chaidez MD ? Collected: ? 11/07/2024 1011 ? Ordering Location: ? [facility] ??Received: ?11/07/2024 1148 ? - Endoscopy ? Pathologist: ? Rongjun Duncan, MD ? Specimens: ?? 1) - Lung, Right, LUNG RIGHT LOWER LOBE BAL ? 2) - Lung, Left, LUNG LEFT UPPER LOBE BAL ? 3) - Lung, LUNG STATION 7 ? 4) - Lung, STATION 4R ? 11/10/2024 12:10 PM [facility] LABFinal Diagnosis1. Lung, right lower lobe, bronchoalveolar lavage: No malignant cells identified. Numerous eosinophils present. 2. Lung, left upper lobe, bronchoalveolar lavage: No malignant cells identified. Numerous eosinophils present. 3. Lymph node, station 7, fine-needle aspiration: No malignant cells identified. Numerous eosinophils present. Lymph node components present. 4. Lymph node, station 4R, fine-needle aspiration: No malignant cells identified. Brisk eosinophils present. Lymph node components present. 11/10/2024 12:10 PM [facility] at 1210 EDTCommentIn order to rule out infectious agents, GMS stains for fungal infection and AFB stain for mycobacteria infection are performed on 3A and 4A and negative with adequate controls. AE1/AE3 stain only highlights benign epithelium with adequate control. Concurrent flow cytometry shows polyclonal lymphocytes.11/10/2024 12:10 PM [facility] Intraoperative Consultation3. Lung Station 7, fine needle aspirate: Pass 1: Hypocellular. Pass 2: Negative. Pass 3: Hypocellular. Pass 4: Hypocellular. Pass 5: Negative. 4. Lung, 4R, fine needle aspirate: Pass 1: Hypocellular. Pass 2: Negative. Pass 3: Negative. Pass 4. Negative Dr. Duncan Interpretation provided at [facility], [address] [place] [id number]. 11/10/2024 12:10 PM [facility] LABORATORYGross Description Received was 15ml of clear colorless fluid unfixed, labeled as Tischler, right lung . CytoLyt added in lab. Specimen placed in formalin at 16:00 and had a total fixation time of 9 hours. 2. Received was 20ml of clear colorless fluid unfixed, labeled as Tischler, left lung . CytoLyt added in lab. Specimen placed in formalin at 16:00 and had a total fixation time of 9 hours. 3. Prepared in endoscopy were 10 slides.(5 DQ, 5 fixed) Also received was a needle rinse in CytoLytfor cellblock. Needle rinse obtained at 10:19 and placed in formalin at 16:00 with a total formalinfixation time of 9 hours. 4. Prepared in endoscopy were 8 slides. (4 DQ, 4 Fixed) Also received was a needle rinse in CytoLytfor cellblock. Needle rinse obtained at 10:41 and placed in formalin at 16:00 with a total formalinfixation time of 9 hours. 11/10/2024 12:10 PM [facility]ORATORYEmbedded Images 11/10/2024 12:10 PM [facility] LABSpecimen (Source)Anatomical Location / LateralityCollection Method / VolumeCollection TimeReceived Time Bronchoalveolar Lavage (Lung, Right)11/07/2024 10:11 AM EDT11/07/2024 11:48 AM EDTComment:Pre-op diagnosis: EGPA, hypereosinophilic syndromes, eosinophilic pneumonia, pulm nodule. Bronchoalveolar lavage fluid specimen (specimen) (Lung, Left)11/07/2024 10:13 AM EDT11/07/2024 11:48 AM EDTComment:Pre-op diagnosis: EGPA, hypereosinophilic syndromes, eosinophilic pneumonia, pulm nodule.Specimen obtained by fine needle aspiration procedure (specimen)Lung structure / Unknown 11/07/2024 10:19 AM EDT11/07/2024 11:48 AM EDTComment:Pre-op diagnosis: EGPA, hypereosinophilic syndromes, eosinophilic pneumonia, pulm nodule.Specimen obtained by fine needle aspiration procedure (specimen)Lung structure / Unknown 11/07/2024 10:41 AM EDT11/07/2024 11:48 AM EDTComment:Pre-op diagnosis: EGPA, hypereosinophilic syndromes, eosinophilic pneumonia, pulm nodule. Narrative Authorizing ProviderResult TypeResult StatusNicyadiel Chaidez MD PATHOLOGY/CYTOLOGY ORDERABLESFinal ResultPerforming OrganizationAddress City/State/ZIP CodePhone Number [facility] [address] [place] [address], [facility] [address] [place] [address], * ME AN ELECTIVE ENDOTRACHEAL AIRWAY (11/07/2024 10:04 AM EDT) Narrative Rodolfo Pichardo APRN-CRNA - 11/07/2024 10:04 AM EDT JUAN CARLOS Pro 11/07/2024 10:17 AM Airway Patient location during procedure: OR Urgency: Elective Date/Time: 11/07/2024 10:04 AM Airway not difficult IV In Situ: Peripheral General Information and Staff Service Provider: JUAN CARLOS Pro ROAD ADVISOR: JUAN CAROLS Pro Placed by: ??JUAN CARLOS Pro Patient Identified, IV Checked, Risks and Benefits Discussed, Surgical Consent, Monitors and Equipment Checked, Pre-op Evaluation and Timeout Performed Fire Risk Assessment Score: 2 Consent for Emergent Airway (if performed for an anesthetic, see related documentation for consents) Risks and benefits: risks, benefits and alternatives were discussed Indications and Patient Condition Preoxygenated: yesPatient position: Supine Mask difficulty assessment: 2 - Vent by Mask + OA or Adjuvant +/- NMBA Indications for airway management: Anesthesia Complications: No Complicating Factors: No Final Airway Details Final airway type: ETT Endotracheal airway: Cuffed, ETT - Single Lumen, Inflated and Pre-Curved Techniques used for successful ETT Placement: With Stylet and Video Laryngoscopy Cormack-Lehane Classification: Grade I Endotracheal tube insertion site: Oral No Bite Block Placed Dentition Check Pre: See Pre-Evaluaton documentation Post Intubation Trauma? No Visibility: ??Cords Clear Blade: Other (mcrath) Blade size: #3 Placement verified by: chest auscultation, capnography and symmetrical chest wall movement ETT size: 8.5 mm Measured from: Lips Secured at (cm): 23 Number of other approaches attempted: 0 Number of attempts at approach: 1 Authorizing ProviderResult TypeResult StatusGuru Bills MDANESTHESIA ORDERABLES Final Result * Bronchoscopy (11/07/2024 9:48 AM EDT)Specimen (Source)Anatomical Location / LateralityCollection Method / VolumeCollection TimeReceived Time11/07/2024 9:48 AM EDT [facility] CARDIOVASCULAR - 12/26/2024 11:57 AM EDT [facility] Patient Name: Fernanda Ryan ?? Procedure Date: 11/07/2024 9:48 AM ? CSN: [id number] Date of : 1975 Admit Type: Outpatient Age: 49 Room: [place] [address] Gender: Female Note Status: Make Up Operator Override Attending MD: Junie Chaidez , , Procedure: ? Bronchoscopy Providers: ? Junie Chaidez (Doctor), Junie Chaidez ? (Ordering Provider) Referring MD: ? Requesting Physician: ?? Findings: ? Make Up Operator Override Junie Chaidez, Number of Addenda: 0 Note Initiated On: 11/07/2024 9:48 AM Scope In: Scope Out: Procedure Note Junie Chaidez MD - 12/26/2024 [facility] Patient Name: Fernanda Ryan Procedure Date: 11/07/2024 9:48 AM CSN: [id number] Date of : 1975 Admit Type: Outpatient Age: 49 Room: [place] [address] Gender: Female Note Status: Make Up Operator Override Attending MD: Junie Chaidez , , Procedure: Bronchoscopy Providers: Junie Chaidez (Doctor), Junie Chaidez (Ordering Provider) Referring MD: Requesting Physician: Findings: Make Up Operator Override Junie Chaidez, Number of Addenda: 0 Note Initiated On: 11/07/2024 9:48 AM Scope In: Scope Out: Authorizing ProviderResult TypeResult StatusJunie Chaidez MDPROCEDURE/MINOR SURGICAL ORDERABLESEdited Result - FinalPerforming OrganizationAddress City/State/ZIP CodePhone Number [facility] * POCT , urine (11/07/2024 8:33 AM EDT)ComponentValueRef RangeTest MethodAnalysis TimePerformed AtPathologist SignaturePOC Urine NegativeNegative, Oeyryvtpsospw56/29/2025 8:33 AM [facility] LABORATORYSpecimen (Source)Anatomical Location / LateralityCollection Method / VolumeCollection TimeReceived XnqcLervn12/29/2025 8:33 AM EDT11/07/2024 8:33 AM EDT Narrative Authorizing ProviderResult TypeResult StatusJunie Chaidez MDPOINT OF CARE TEST ORDERABLESFinal ResultPerforming OrganizationAddressCity/State/ZIP Code Phone Number [facility] [address] [place] [address], * Bronchoscopy Report (11/07/2024 8:16 AM EDT)Specimen (Source)Anatomical Location / LateralityCollection Method / VolumeCollection TimeReceived Time Narrative SYSTEMGENERATED, DOCUMENTATION - 11/07/2024 8:16 AM EDT This order has been auto-finalized for image and report archival in PACs. *For full report details, please reach out to your physician. ??This image is visible to you in MyChart.* Authorizing ProviderResult TypeResult StatusJunie Chaidez MDIMG OR IMG ORDERABLESFinal Result * High risk HPV w/nhi (12/05/2018 6:53 PM EDT)ComponentValueRef RangeTest MethodAnalysis TimePerformed AtPathologist SignatureHpv specimen typeThinPrep 12/05/2018 6:53 PM EDTSUNQUESTHpv 16NegativeNegative^Wsjlhdia66/27/2019 2:18 PM [facility] LABHpv 18NegativeNegative^Oyatzjnt38/27/2019 2:18 PM [facility] LABOther high risk hpvNegative Negative^Vnssszmb88/27/2019 2:18 PM [facility] LABComment: HPV types 31,33,35,39,45,52,56,58,59,66 and 68 DNA were undetectable. Specimen (Source)Anatomical Location / LateralityCollection Method / Volume Collection TimeReceived TimeSerum / Etagygp9612/05/2018 6:53 PM EDT12/05/2018 6:53 PM EDT Narrative Authorizing ProviderResult TypeResult StatusDennis G Furlong DOLAB BLOOD ORDERABLESFinal ResultPerforming OrganizationAddressCity/State/ZIP CodePhone Number [facility] [address], [address] [place] [address] from Last 3 Months or Most Recently Relevant to Health Maintenance Insurance * Guarantor: Fernanda RyanAccoromelia TypeRelation to PatientDate of BirthPhone Billing AddressPersonal/OtivhaLmvf1975 [phone] [address] Care Teams Team MemberRelationshipSpecialtyStart DateEnd Date Jorge A Campos DO [address], [place] [address] PCP - GeneralFamily Medicine11/03/16
--- OUTSIDE RECORDS SUMMARY | 2025-02-05 16:54 | XMS_ITS | Clinical Summary ---
Author Organization [facility] Healthcare Address [address] [place] [address] Care Team Providers Care Dyno Technician Name Role Phone Unavailable Primary Care Provider Unavailabl e Social History Tobacco UseTypesPacks/DayYears UsedDateSmoking Tobacco: Never Assessed CommentsUnknownSex and Gender InformationValueDate RecordedSex Assigned at Not on fileLegal RchJsafke91/15/2023 7:01 PM EDTGender IdentityNot on fileSexual OrientationNot on file Last Filed Vital Signs Vital SignReadingTime TakenCommentsBlood Ixzyblgt064/7508 12:00 PM EDT Pulse--Temperature--Respiratory Rate--Oxygen Saturation--Inhaled Oxygen Concentration--Ykqgeg62 kg (150 lb)12/07/2018 12:00 PM ASVDpvjfp070.8 cm (5' 4.5 )12/07/2018 12:00 PM EDTBody Mass Index25.35012/07/2018 12:00 PM EDT Plan of Treatment Not on file
--- OUTSIDE RECORDS SUMMARY | 2025-02-05 16:54 | XMS_ITS | Clinical Summary ---
Author Organization [facility] Address [address] [place] [address] Care Team Providers Care Tactical Response Group Officer Name Role Phone Jorge A Campos DO Primary Care Provider Allergies Active AllergyReactionsCriticalityNoted UcmqYjathosqOcnqvkvWwpjlpx81/24/2017 Also causes pt. To vomit Medications MedicationSigDispense QuantityRefillsLast FilledStart DateEnd DateStatus montelukast (SINGULAIR) 10 mg tablet Take 1 tablet by mouth once daily.10/05/2016Active cetirizine-pseudoephedrine (ZYRTEC-D) 5-120 mg per tablet Take 2 tablets by mouth once daily.10/19/2016Active SUMAtriptan (IMITREX) 50 mg tablet Take 1 tablet by mouth as needed.10/19/2016Active albuterol HFA (PROAIR HFA) 90 mcg/actuation inhaler Inhale 1 Puff as instructed as needed.11/01/2016Active albuterol (PROVENTIL) 2.5 mg /3 mL (0.083 %) nebulizer solution 06/10/2018Active fluticasone (FLONASE) 50 mcg/actuation nasal spray Indications:Moderate persistent asthma with acute exacerbation (HCC)Use 1-2 Sprays in each nostril once daily.Active fluticasone-vilanterol (BREO ELLIPTA) 200-25 mcg/dose inhaler Indications:Moderate persistent asthma with acute exacerbation (HCC)Inhale 1 Inhalation as instructed once daily. 1 Each Active predniSONE (DELTASONE) 10 mg tablet Indications:Moderate persistent asthma with acute exacerbation (HCC)Take 1-4 tablets by mouth once daily. 4tab x 3d, 3tab x 3d, 2 tab x 3d, 1tab x 3d 30 tablet 07/05/2018Active esomeprazole (NEXIUM) 40 mg capsule Indications:Gastroesophageal reflux disease without esophagitisTake 1 capsule by mouth once daily. 30 capsule Active RESEARCH MEDICATION Take 3 Packets by mouth once daily. Medium Chain Triglycerides or placebo. For research study PrecISE, IRB #[id number]/ctive INV CLAZAKIZUMAB 12.5 MG/ML OR PLACEBO INJECTION (IRB 19-1622) Inject 1 mL subcutaneously every 4 weeks. For Investigational Drug Use Only. PI: Solo Romero MD.Active Active Problems ProblemNoted DateDiagnosed DateGastroesophageal reflux disease without ualoptamlcv75/26/2019Moderate persistent asthma with acute exacerbation 07/05/2018 Family History Medical HistoryRelationCommentsCancerFatherRelationStatusCommentsFather Social History Tobacco UseTypesPacks/DayYears UsedDateSmoking Tobacco: NeverSmokeless Tobacco: NeverArea Deprivation IndexAnswerDate RecordedNational Score (1-100), lower number is lower ualo356601/06/2023State Score (1-10), lower number is lower risk4 01/06/2023ata from: https://www.neighborhoodatlas.[facility].edu/. Last address used for f[address]kwigh[address] 3CommentsUnknownSex and Gender InformationValueDate RecordedSex Assigned at BkxkaTtrbrm43/17/2024 10:16 AM EDTLegal RioEvlwim90/11/2017 2:45 PM EDTGender CxfajasiXnnodj81/17/2024 10:16 AM EDTSexual CkylicjlljqUkaouwds82/17/2024 10:16 AM EDT Last Filed Vital Signs Vital SignReadingTime TakenCommentsBlood Qomyxbxh991/70007/05/2018 10:29 AM EDT Khlav9913 10:29 AM CBXTnnmpnigibn85.9 ??C (98.5 ??F)07/05/2018 10:29 AM EDTRespiratory Ucuh5662 10:29 AM EDTOxygen Rifpkpmxao34%07/05/2018 10:29 AM EDTInhaled Oxygen Concentration--Ocstsn98 kg (141 lb)07/05/2018 10:29 AM EDT Lkktuv845.1 cm (5' 5 )07/05/2018 10:29 AM EDTBody Mass Index23.46007/05/2018 10:29 AM EDT Plan of Treatment Health MaintenanceDue DateLast DoneCommentsAnnual PCP Team Chronic Disease Visit 1995Anxiety Lcwxogvtm57/20/1995Depression Idhyakvid69/20/1995HIV Screening 1995Hepatitis C Icecgawhl75/20/1995Hepatitis B Vaccine (1 of 3 - 19+ 3- dose series)01/30/1996Pneumococcal Vaccine (1 of 2 - PCV)01/30/1996Cervical Cancer Dtzijxdjo77/20/1998DTaP,Tdap,Td Vaccine (2 - Td or Tdap)09/10/2021 09/11/2011CT Fzsfwrbwvkeb24/20/2022Cologuard (FIT-DNA)2Colonoscopy 2Colorectal Cancer Twiohpjjg44/20/2022Fecal Occult Blood2022Lipid Bbzrqetvj64/20/8386Uhvlmawefjqqv70/20/2022Mammogram Cjrcpkpum64/24/2022 03/05/2021, 12/29/2019Diabetes Tcevvbomi81/07/104765/10/2019Covid-19 Vaccine (1 - season)2024Influenza Vaccine (#1), 02/10/2015 Care Teams Team MemberRelationshipSpecialtyStart DateEnd Date Jorge A Campos DO [address] [place] [address] PCP - GeneralFamily Medicine10/10/16
[2025-02-05 16:56] VITALS: BP 129/61; PULSE 68; TEMP 36.7; O2SAT 98; BMI 25.0
--- NOTE | 2025-02-05 17:37 | XR_ITS ---
The [address] [address] Patient Name: FERNANDA ALLEN MRN: [id number] date: 1975 Sex: F Assigned Patient Location: ER Current Patient Location: ED.MAIN Accession/Order Number: [id number] Exam Date: 02/05/2025 17:45 Report Date: 02/05/2025 18:45 At the request of: MACIEJ MORA MD Procedure: XR foot RT min 3V RIGHT ANKLE - 3 VIEWS/3 VIEWS RIGHT FOOT CLINICAL HISTORY: pain COMPARISON: None FINDINGS: No fracture dislocation. Talar dome is intact. Soft tissues unremarkable. XR/XR foot RT min 3V IMPRESSION: NO ACUTE OSSEOUS FINDINGS. Impression dictated by: Jude Santiago M.D. 02/05/2025 6:45 PM Dictation Location: [place] [address] Electronically authenticated by: [id number] Y Date: 02/05/2025 18:45
--- NOTE | 2025-02-05 17:37 | XR_ITS ---
The [address] [address] Patient Name: FERNANDA ALLEN MRN: [id number] date: 1975 Sex: F Assigned Patient Location: ER Current Patient Location: ED.MAIN Accession/Order Number: [id number] Exam Date: 02/05/2025 17:45 Report Date: 02/05/2025 18:45 At the request of: MACIEJ MORA MD Procedure: XR foot RT min 3V RIGHT ANKLE - 3 VIEWS/3 VIEWS RIGHT FOOT CLINICAL HISTORY: pain COMPARISON: None FINDINGS: No fracture dislocation. Talar dome is intact. Soft tissues unremarkable. XR/XR ankle RT min 3V IMPRESSION: NO ACUTE OSSEOUS FINDINGS. Impression dictated by: Jude Santiago M.D. 02/05/2025 6:45 PM Dictation Location: [place] [address] Electronically authenticated by: [id number] Y Date: 02/05/2025 18:45
--- NOTE | 2025-02-05 18:13 | ED_ITS ---
Documented by User: Aminta Gilbert MD 02/05/25 18:16 HPI - Extremity Problem General Chief complaint: Extremity Problem, Nontraumatic Stated complaint: LOWER PAIN Time Seen by Provider: 02/05/25 17:04 Source: patient Mode of arrival: walk-in Limitations: no limitations History of Present Illness HPI Narrative: Patient is a 50-year-old female presenting to the ER with a pain in her right calf going down her right posterior ankle as well as the right heel pain that started last night, according to the patient she is walking on the side of her foot because of the pain Denies any fall or trauma but she mentioned that she was treated for a long few weeks of steroids due to the history of lung nodule Related Data Home Medications ?Medication ?Instructions ?Recorded ?Confirmed albuterol 90 mcg-budesonide 80 inh inhalation 02/05/25 mcg/actuation HFA aerosol inhaler (Airsupra) fluticasone fur. 200 mcg-umeclid inhalation 02/05/25 62.5 mcg-vilant 25 mcg inhalat.powder (Trelegy Ellipta) guaifenesin 600 mg tablet, mg PO 02/05/25 extended release 12 hr (Mucus Relief ER) montelukast 10 mg tablet mg 02/05/25 Allergies Allergy/AdvReac Type Severity Reaction Status Date / Time Penicillins AdvReac Severe Shortness Verified 02/05/25 16:56 of breath codeine AdvReac Mild Vomiting Verified 02/05/25 16:56 Review of Systems ROS Status of ROS 10 or more systems reviewed and unremark able except as noted in history and below PFSH PFSH Social History Little interest or pleasure in doing things: not at all Feeling down, depressed, or hopeless: not at all Exam Narrative Exam Narrative: Nurses notes and vital signs reviewed and patient is not hypoxic. General: Well-appearing and in no apparent distress. Skin: Warm, dry, no pallor noted. No rash. Head: Normocephalic, atraumatic. Neck: Supple, non-tender. Cardiovascular: Regular Rate and Rhythm without murmur, gallop or rub. Respiratory: No accessory muscle use or respiratory distress. Lungs are clear to auscultation, no wheezing, rales or rhonchi Musculoskeletal: normal ROM, has 1 palpation of the right calf as well as the posterior aspect of the right ankle at the insertion of the Achilles tendon the patient have a very mild tenderness upon palpation of the plantar fascia as well GI: Abdomen is soft, non-distended. Normal bowel sounds. No masses appreciated. No tenderness to palpation. No rebound, guarding, or rigidity noted. Neurological: A&O x4. No cranial nerve dysfunction observed. Constitutional Vital Signs, click to edit/add: Last Vital Signs Temp 98.1 F 02/05/25 16:56 Pulse 68 02/05/25 16:56 Resp 16 02/05/25 21:08 BP 129/61 02/05/25 16:56 Pulse Ox 98 02/05/25 16:56 O2 Del Method Room Air 02/05/25 16:56 Course Vital Signs Vital signs: Vital Signs Temperature 98.1 F 02/05/25 16:56 Pulse Rate 68 02/05/25 16:56 Respiratory Rate 18 02/05/25 16:56 Blood Pressure 129/61 02/05/25 16:56 Pulse Oximetry 98 02/05/25 16:56 Oxygen Delivery Method Room Air 02/05/25 16:56 Temperature 98.1 F 02/05/25 16:56 Pulse Rate 68 02/05/25 16:56 Respiratory Rate 16 02/05/25 21:08 Blood Pressure 129/61 02/05/25 16:56 Pulse Oximetry 98 02/05/25 16:56 Oxygen Delivery Method Room Air 02/05/25 16:56 Discharge Plan Discharge Chief Complaint: Extremity Problem, Nontraumatic Clinical Impression: Achilles tendinitis Patient Disposition: Home, Self-Care Time of Disposition Decision: 21:03 Condition: Good Mode of Transportation: Private Vehicle Prescriptions / Home Meds: No Action montelukast 10 mg tablet guaifenesin [Mucus Relief ER] 600 mg tablet extended release 12hr PO Trelegy Ellipta 200-62.5-25 mcg blister with device INHALATION Airsupra 90-80 mcg/actuation HFA aerosol inhaler INHALATION Print Language: Citizen Of [place] Instructions: Tendinitis (ED) Referrals: CHARO BURDICK [Primary Care Provider, Family Practice] - 1 week Discharge Date/Time: 02/05/25 21:12 Documented by User: Víctor Garcia DO 02/06/25 00:16 HPI - Extremity Problem General Chief complaint: Extremity Problem, Nontraumatic Stated complaint: LOWER PAIN Time Seen by Provider: 02/05/25 17:04 Related Data Home Medications ?Medication ?Instructions ?Recorded ?Confirmed albuterol 90 mcg-budesonide 80 inh inhalation 02/05/25 mcg/actuation HFA aerosol inhaler (Airsupra) fluticasone fur. 200 mcg-umeclid inhalation 02/05/25 62.5 mcg-vilant 25 mcg inhalat.powder (Trelegy Ellipta) guaifenesin 600 mg tablet, mg PO 02/05/25 extended release 12 hr (Mucus Relief ER) montelukast 10 mg tablet mg 02/05/25 Allergies Allergy/AdvReac Type Severity Reaction Status Date / Time Penicillins AdvReac Severe Shortness Verified 02/05/25 16:56 of breath codeine AdvReac Mild Vomiting Verified 02/05/25 16:56 PFSH PFSH Social History Little interest or pleasure in doing things: not at all Feeling down, depressed, or hopeless: not at all Exam Constitutional Vital Signs, click to edit/add: Last Vital Signs Temp 98.1 F 02/05/25 16:56 Pulse 68 02/05/25 16:56 Resp 16 02/05/25 21:08 BP 129/61 02/05/25 16:56 Pulse Ox 98 02/05/25 16:56 O2 Del Method Room Air 02/05/25 16:56 Course Vital Signs Vital signs: Vital Signs Temperature 98.1 F 02/05/25 16:56 Pulse Rate 68 02/05/25 16:56 Respiratory Rate 18 02/05/25 16:56 Blood Pressure 129/61 02/05/25 16:56 Pulse Oximetry 98 02/05/25 16:56 Oxygen Delivery Method Room Air 02/05/25 16:56 Temperature 98.1 F 02/05/25 16:56 Pulse Rate 68 02/05/25 16:56 Respiratory Rate 16 02/05/25 21:08 Blood Pressure 129/61 02/05/25 16:56 Pulse Oximetry 98 02/05/25 16:56 Oxygen Delivery Method Room Air 02/05/25 16:56 MDM - Extremity (Nontraumatic) MDM Narrative Medical decision making narrative: Patient was signed out to me by Dr. Gilbert pending results of ultrasound and x- rays. The patient is a 50-year-old female presenting to the emergency department with atraumatic right lower extremity pain from the medial aspect of the knee down to the medial aspect of her foot. Vital signs arrival are within normal limits. She is afebrile and hemodynamically stable. The extremity is neurovascularly intact. Differential diagnose includes tendinitis, musculoskeletal pain, and less likely DVT or underlying osseous lesions. X-rays and ultrasound were ordered by Dr. Gilbert. Duplex ultrasound of the right lower extremity demonstrated no evidence of DVT. X-rays of the right foot and ankle demonstrated no acute osseous abnormalities. I do believe the patient is stable for discharge. Patient's presentation is most likely consistent with tendinitis/musculoskeletal pain. They were instructed to follow up with their PCP for further car. Return precautions were given including any new or worsening symptoms. Patient understands and agrees to the plan. FINAL IMPRESSION: #Acute right lower extremity musculoskeletal pain DISPOSITION: Discharged home CONDITION: Good Discharge Plan Discharge Chief Complaint: Extremity Problem, Nontraumatic Clinical Impression: Achilles tendinitis Patient Disposition: Home, Self-Care Time of Disposition Decision: 21:03 Condition: Good Mode of Transportation: Private Vehicle Prescriptions / Home Meds: No Action montelukast 10 mg tablet guaifenesin [Mucus Relief ER] 600 mg tablet extended release 12hr PO Trelegy Ellipta 200-62.5-25 mcg blister with device INHALATION Airsupra 90-80 mcg/actuation HFA aerosol inhaler INHALATION Print Language: Citizen [place] Instructions: Tendinitis (ED) Referrals: CHARO BURDICK [Primary Care Provider, Family Practice] - 1 week Discharge Date/Time: 02/05/25 21:12
== END 2025-02-05 21:12 | disposition home or self-care (01) ==
PROVIDERS: Emergency Provider Emergency Medicine; PCP Family Medicine
DX: M76.61 Achilles tendinitis, right leg (principal)
CPT/HCPCS: 73610; 73630; 93971; 99284; 99285